=== PATIENT | female | born 1950 | race Caucasian/White ===

== ENCOUNTER 2017-06-14 15:17 | Emergency (ER) | payer OTHER ==
[~2017-06-14] VITALS: Ht 152.4 cm; Wt 71.2 kg
[~2017-06-14 15:17] MED LIST: ADVAIR HFA120 INHAL1 IH; ARAVA20 M1 PO; ATIVAN2 MG PO; CALCIUM + VITA1 EACH PO; CLONIDINE HCL0.3 MG PO; CRESTOR10 MG PO; CYMBALTA60 MG PO; Ceftin PO; FELODIPINE ER5 MG PO; FOLIC ACID1 MG PO; FORTEO20 MICROGR SC; HYDROXYCHLOROQ200 MG PO; IPRATR-ALBUTEROL3 ML IH; LASIX20 MG PO; LYRICA200 MG PO; METHOTREXATE2.5 MG PO; MINOCYCLINE HC100 MG PO; OXYCONTIN40 MG PO; PREDNISONE PO; PREDNISONE2.5 MG PO; PREDNISONE20 MG PO; PROAIR HFA8.5 GM IH; PROAIR IH; SINGULAIR10 MG PO; SPRIVA IH; VITAMIN D PO; [UNRECOGNIZED DRUG - OTHER]
[2017-06-14 19:42] VITALS: BP 137/60
== END 2017-06-14 19:43 | disposition home or self-care (01) ==
LOC: EME 15:17
DX: S72.111A Displaced fracture of greater trochanter of right femur, initial encounter for closed fracture (principal); W18.30XA Fall on same level, unspecified, initial encounter; M06.9 Rheumatoid arthritis, unspecified; J45.909 Unspecified asthma, uncomplicated; I10 Essential (primary) hypertension; Z79.52 Long term (current) use of systemic steroids; Z87.891 Personal history of nicotine dependence
CPT/HCPCS: 73502; 99281; 99284